=== PATIENT | female | born 1965 | race Caucasian/White ===

== ENCOUNTER → 2016-11-13 | Outpatient (CLI) | payer BC | LOC: MC.RAD 09:34 | DX: Z12.31 Encounter for screening mammogram for malignant neoplasm of breast (principal); D24.1 Benign neoplasm of right breast; Z85.3 Personal history of malignant neoplasm of breast ==

== ENCOUNTER → 2018-02-07 | Outpatient (CLI) | payer BC | LOC: MC.RAD 01-27 14:40 | DX: Z12.31 Encounter for screening mammogram for malignant neoplasm of breast (principal); Z98.890 Other specified postprocedural states; Z85.3 Personal history of malignant neoplasm of breast ==

== ENCOUNTER → 2019-03-17 | Outpatient (CLI) | payer BC | LOC: MC.RAD 10:02 | DX: Z12.31 Encounter for screening mammogram for malignant neoplasm of breast (principal); Z98.890 Other specified postprocedural states ==

== ENCOUNTER → 2020-03-23 | Outpatient (CLI) | payer BC | LOC: MC.RAD 11:16 | DX: Z12.31 Encounter for screening mammogram for malignant neoplasm of breast (principal) ==

== ENCOUNTER → 2021-03-28 | Outpatient (CLI) | payer BC ==
[~2021-03-28] MED LIST: LIPITOR 10MG10 MG PO; MAXZIDE-25MG TA1 TAB PO; XALATAN EYE DROPS OU
== END ==
LOC: MC.RAD 09:22
DX: Z12.31 Encounter for screening mammogram for malignant neoplasm of breast (principal); Z90.12 Acquired absence of left breast and nipple; Z98.82 Breast implant status

== ENCOUNTER 2021-04-12 10:46 | Outpatient (CLI) | payer BC ==
[2021-04-12] VITALS (7 sets, daily range): BP systolic 171–182; BP diastolic 52–68; PULSE 62–65; TEMP 98.2
[2021-04-12] MEDS ORDERED: MAXZIDE-25MG TA1 TAB PO (11:50)
[2021-04-12] MEDS ORDERED: XALATAN EYE DROPS OU (11:51)
[2021-04-12] MEDS ORDERED: LIPITOR 10MG10 MG PO (11:51)
== END 2021-04-12 13:00 | disposition home or self-care (01) ==
LOC: EUO 10:46
DX: Z20.822 Contact with and (suspected) exposure to COVID-19 (principal)
CPT/HCPCS: Q0244

== ENCOUNTER → 2022-04-04 | Outpatient (CLI) | payer OTHER | LOC: MC.RAD 11:10 | DX: Z12.31 Encounter for screening mammogram for malignant neoplasm of breast (principal) ==

== ENCOUNTER → 2024-06-09 | Outpatient (CLI) | payer OTHER | LOC: MC.RAD 10:30 | DX: Z12.31 Encounter for screening mammogram for malignant neoplasm of breast (principal) ==